=== PATIENT | female | born 2005 | race Caucasian/White ===

== ENCOUNTER 2023-06-28 15:06 | Emergency (ER) | payer OTHER ==
[~2023-06-28] VITALS: Ht 160 cm; Wt 70.3 kg
[2023-06-28 15:11] VITALS: O2SAT 100
[2023-06-28] MEDS ORDERED: NEOM10DR11 LEFT EAR (15:55)
== END 2023-06-28 16:10 | disposition home or self-care (01) ==
LOC: ER 15:09
DX: H60.92 Unspecified otitis externa, left ear (principal); Z79.899 Other long term (current) drug therapy
CPT/HCPCS: A4663